=== PATIENT | female | born 1950 | race Caucasian/White ===

== ENCOUNTER 2019-03-20 15:05 | Emergency (ER) | payer MEDICARE ==
[~2019-03-20] VITALS: Ht 160 cm; Wt 60.0 kg
[~2019-03-20 15:05] MED LIST: ALLOPURINOL100 MG PO; ASPIRIN81 MG PO; CALCIUM600 M3 PO; CYMBALTA30 MG PO; GABAPENTIN400 M2 PO; HYDROXYCHLOR200 MG PO; IMODIUM2 MG PO; KLOR-CON M2020 MEQ PO; LASIX 40 MG40 MG/TAB PO; METOPROL TAR25 MG PO; NOVOLOG100 IU/1 M SC; PREDNISONE5 MG PO; SB OMEPRAZOLE20 MG PO; SIMVASTATIN10 MG PO; SYNTHROID150 MCG PO; TOPIRAMATE25 MG PO; TRAMADOL HCL50 MG PO; TREXALL10 MG PO; TYLENOL PM PO
[2019-03-20] MEDS ORDERED: METO25TAB PO (16:14)
[2019-03-20] MEDS ORDERED: PREDNISONE5 MG PO (16:15)
[2019-03-20] MEDS ORDERED: ARAVA20 MG PO (16:18)
[2019-03-20] MEDS ORDERED: NOVOLOG MIX SC ×2 (16:19)
[2019-03-20] MEDS ORDERED: CRESTOR5 MG PO (16:21)
[2019-03-20] MEDS ORDERED: HYDROXYCHLOR200 MG PO (16:21)
[2019-03-20] MEDS ORDERED: CREON12000 UNT PO (16:23)
[2019-03-20] MEDS ORDERED: HYDROCODON PO (16:27)
[2019-03-20] MEDS ORDERED: PROLIA60 MG/ML SC (16:28)
[2019-03-20 16:51] LABS: HEMATOCRIT 22.1 % (37.0-47.0); IMMATURE GRANULOCYTES 1.2 % (0.0-5.0); MEAN CORPUSCULAR HGB 35.2 pG CALC (26.0-32.0); MEAN CORPUSCULAR HGB CONC 31.7 g/L CALC (32.0-36.0); NEUT# 2.89 thou/uL (2.00-7.15); RED BLOOD COUNT 1.99 mill/uL (4.20-5.60); RED CELL DISTRI WIDTH 15.9 % (11.5-15.5)
[2019-03-20 17:09] LABS: ANION GAP 9 (6-22 (CALC)); BUN 27 mg/dL (8-23); BUN/CREATININE RATIO 40 (12-20 (CALC)); CARBON DIOXIDE 28 mmol/l (22-30); CHLORIDE 101 mmol/l (95-108); CREATININE 0.7 mg/dL (0.5-1.0); GFR > 60 ML/MIN (>=60 (CALC)); GFR FOR AFR.AMER. > 60 ML/MIN (>=60 (CALC)); POTASSIUM 3.9 mmol/l (3.5-5.1); SODIUM 135 mmol/l (137-146)
[2019-03-20 17:19] LABS: MEAN CELL VOLUME 111.1 fL CALC (80.0-100.0)
[2019-03-20] MEDS ORDERED: PROVENTIL108 MCG/AC (19:16)
[2019-03-20 23:00] VITALS: BP 131/74
== END 2019-03-20 23:05 ==
LOC: ED 15:05 → ED-I 15:35 → ED 15:35 → ED-I 18:26 → ED 23:05
PROVIDERS: Family Medicine
PROC: 0RSJXZZ Reposition Right Shoulder Joint, External Approach (ICD-10-PCS; principal; 2019-03-20)
DX: S43.014A Anterior dislocation of right humerus, initial encounter (principal); W10.9XXA Fall (on) (from) unspecified stairs and steps, initial encounter; Y92.009 Unspecified place in unspecified non-institutional (private) residence as the place of occurrence of the external cause; D64.9 Anemia, unspecified; D70.9 Neutropenia, unspecified; R51 Headache; I10 Essential (primary) hypertension; M06.9 Rheumatoid arthritis, unspecified; Z95.0 Presence of cardiac pacemaker